=== PATIENT | female | born 1985 | race Two or more races ===

== ENCOUNTER 2018-07-17 13:43 | Emergency (ER) | payer OTHER ==
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
[2018-07-17 15:16] VITALS: BP 124/85
== END 2018-07-17 15:12 | disposition home or self-care (01) ==
DX: S50.02XA Contusion of left elbow, initial encounter (principal); S60.222A Contusion of left hand, initial encounter; V13.4XXA Pedal cycle driver injured in collision with car, pick-up truck or van in traffic accident, initial encounter; Y92.410 Unspecified street and highway as the place of occurrence of the external cause